=== PATIENT | male | born 1995 | race African-American/Black ===

== ENCOUNTER 2024-01-26 21:26 | Emergency (ER) | payer SELFPAY ==
[2024-01-26] MEDS ORDERED: levETIRAcetam 500 MG/5 ML INJECTION VIAL IVPB ONE ×2 (21:49→22:20)
[2024-01-26 22:15] LABS: BASO % 0.5 % (0-2.0); EOS % 0.1 % (0-4.5); HEMATOCRIT 44.7 % (35.4-49); HEMOGLOBIN 14.8 GM/dL (11.7-16.9); LYMPH % 15.5 % (8-40); MCH 29.7 pg (25.7-33.7); MCHC 33.1 g/dl (32.0-35.9); MEAN PLT VOLUME 9.3 fl (7.5-11.1); MONO % 7.2 % (3.8-10.2); NEUT % 76.7 % (42.8-82.8); PLATELET COUNT 177 10^3/uL (134-434); RBC 4.96 M/mm3 (4.00-5.60); WHITE BLOOD COUNT 8.2 K/mm3 (4.0-10.0)
[2024-01-26 22:16] VITALS: RESP 18; TEMP 98; BMI 22.3
[2024-01-26] MEDS ORDERED: ACETAMINOPHEN INJECTION 100 ML IVPB ONE (22:20)
[2024-01-26] MEDS: ACETAMINOPHEN 1000 MG/100 ML BAG IVPB ONE (22:35)
[2024-01-26] MEDS: levETIRAcetam 500 MG/5 ML INJECTION VIAL IVPB ONE ×2 (22:35→22:36)
[2024-01-26] MEDS: LACTATED RINGERS SOLUTION 1000 ML INFUS.BAG IV ONE (22:35)
[2024-01-26] MEDS: DIPHTH,PERTUSS(ACELL),TET 0.5 ML DISP.SYRIN IM ONE (22:36)
[2024-01-26] MEDS: KETOROLAC TROMETHAMINE 15 MG/ML VIAL IVPUSH ONE (22:36)
[2024-01-26 22:38] LABS: POTASSIUM 3.7 mmol/L (3.5-5.1)
[2024-01-26 22:40] LABS: CALCIUM 9.4 mg/dL (8.5-10.1)
[2024-01-26 22:41] LABS: ALBUMIN 4.3 g/dl (3.4-5.0); BLOOD UREA NITROGEN 10.6 mg/dL (7-18); MAGNESIUM 2.7 mg/dL (1.8-2.4)
[2024-01-26 22:44] LABS: CREATININE 1.3 mg/dL (0.55-1.3); PHOSPHOROUS 1.6 mg/dL (2.5-4.9)
[2024-01-26 22:45] LABS: BILIRUBIN,TOTAL 1.4 mg/dL (0.2-1); TOT PROT 8.1 g/dl (6.4-8.2)
[2024-01-26 22:49] LABS: LACTIC ACID 3.4 mmol/L (0.4-2.0)
[2024-01-27] MEDS ORDERED: NAPH,MB-DB/K PH,MBDB POWDER PACKET ONE (01:15)
[2024-01-27] MEDS: LACTATED RINGERS SOLUTION 1000 ML INFUS.BAG IV ONE (01:36)
[2024-01-27] MEDS: NAPH,MB-DB/K PH,MBDB POWDER PACKET PO ONE (01:36)
[2024-01-27 02:39] VITALS: BP 148/65; PULSE 78
== END 2024-01-27 06:38 | disposition home or self-care (01) ==
LOC: JER 21:26
PROC: 0HQ1XZZ Repair Face Skin, External Approach (ICD-10-PCS; principal; 2024-01-26)
PROC: 3E033NZ Introduction of Analgesics, Hypnotics, Sedatives into Peripheral Vein, Percutaneous Approach (ICD-10-PCS; 2024-01-26)
PROC: 3E033GC Introduction of Other Therapeutic Substance into Peripheral Vein, Percutaneous Approach (ICD-10-PCS; 2024-01-26)
PROC: 3E0234Z Introduction of Serum, Toxoid and Vaccine into Muscle, Percutaneous Approach (ICD-10-PCS; 2024-01-26)
DX: S01.112A Laceration without foreign body of left eyelid and periocular area, initial encounter (principal); S01.511A Laceration without foreign body of lip, initial encounter; G40.909 Epilepsy, unspecified, not intractable, without status epilepticus; R29.898 Other symptoms and signs involving the musculoskeletal system; R42 Dizziness and giddiness; M54.2 Cervicalgia; W18.30XA Fall on same level, unspecified, initial encounter; Z23 Encounter for immunization
CPT/HCPCS: 36415; 70450-TC; 70486-TC; 72125-TC; 80053; 82550; 82553; 82962; 83605; 83735; 84100; 85025; 90715; 93005; 93010; 99285-25; J0131